=== PATIENT | male | born 1960 | race Asian ===

== ENCOUNTER 2025-04-09 04:49 | Emergency (ER) | payer MEDICARE, SELFPAY ==
[2025-04-09 04:58] VITALS: BP 116/74
--- NOTE | 2025-04-09 07:34 | ED.GENMED ---
History of Present Illness
General
Chief Complaint: Musculo-Skeletal Complaint
Time Seen by Provider: 04/09/25 07:33
History of Present Illness
History of Present Illness:
PAST MEDICAL HISTORY AND REVIEW OF OLD RECORDS
- The patient came in by ambulance. I reviewed the notes from EMS which indicates that the patient was brought here from .
Note:
CHIEF COMPLAINT(S)
Pain and discoloration in the foot.
HISTORY OF PRESENT ILLNESS
The patient is a 65-year-old male who presented with complaints of foot pain and discoloration. The details surrounding the onset and duration of symptoms were not provided, but the patient mentioned issues with the foot being persistent. He
described dropping something on the floor, which may have been related to the symptoms but no specific incident of trauma was clearly stated. He was picked up by emergency services from a . The patient has a previous history of living in
[place], [place], and is currently relocating to [facility]. He reported no current medications. He states that a local [place] is putting him up at a local hotel for the next couple of days.
PHYSICAL EXAM
General: Alert, no acute distress But appears somewhat disheveled
Skin: Warm, dry.
Head: Normocephalic, atraumatic.
Neck: Supple, trachea midline.
Eye, Ears, Nose, Mouth and Throat: Oral mucosa moist.
Cardiovascular: Normal peripheral perfusion, no edema.
Respiratory: Respirations are non-labored.
Musculoskeletal: There is no significant temperature difference between both feet, superficial varicosities noted, no evidence of infection, slight antalgic gait, although he reports diffuse left foot pain, he has no significant tenderness, perhaps
some very subtle diffuse left foot swelling compared to the right, I personally performed Doppler testing in which PT and DP pulses were easily heard bilaterally
Neurological: Alert and oriented to person, place, time, and situation, no focal neurological deficit observed.
DIFFERENTIAL DIAGNOSIS
The Differential Diagnosis includes, in no particular order and is not limited to:
1. Peripheral vascular disease
2. Gout
3. Diabetic neuropathy
4. Cellulitis
5. Deep vein thrombosis
6. Trauma-related injury
7. Peripheral neuropathy
8. Arthritis
9. Venous insufficiency
10. Dermatological causes
RADIOLOGY
- Left foot x-ray obtained, heel spurs noted. Ultrasound considered to evaluate for DVT, however I have very low suspicion of the patient did not want to have an ultrasound today
LABS
- No clear indication for labs
UPDATE
-SUMMARY OF ENCOUNTER
The 65-year-old male patient presented to the emergency department with complaints of foot pain and discoloration. After examination, he was found to have superficial varicosities, suggesting varicose veins as the cause of the discoloration. Good
blood flow was noted, with no signs of infection or acute major issues.
DISPOSITION
The patient was discharged with recommendations for follow-up care.
ASSESSMENT
The presence of varicose veins with associated discoloration and good peripheral blood flow was potentially causing the symptoms. No acute infections or major vascular issues were identified.
PLAN
Recommend consulting a specialist upon moving to [place] for further management of the varicose veins.
PATIENT EDUCATION AND COUNSELING
The patient was informed about the nature of varicose veins and their contribution to the discoloration in the foot. Advised on potential management strategies and the importance of monitoring the condition.
MEDICAL DECISION MAKING
-Complexity of Data Reviewed: Chronic conditions affecting care include differential diagnosis elements such as peripheral vascular disease, venous insufficiency, peripheral neuropathy, and others.
-Data:
Category 2
The examination revealed varicosities contributing to the discoloration, suggesting varicose veins.
-Risk:
Care significantly affected by Social Determinants of Health due to the patients recent relocation, which may hinder follow-up consistency and specialist consultation.
DIAGNOSIS
Varicose veins with associated discoloration - I83.90
SUMMARY OF ENCOUNTER
The 65-year-old male patient presented to the emergency department with complaints of foot pain and discoloration. After examination, he was found to have superficial varicosities, suggesting varicose veins as the cause of the discoloration. Good
blood flow was noted, with no signs of infection or acute major issues.
DISPOSITION
The patient was discharged with recommendations for follow-up care.
ASSESSMENT
The presence of varicose veins with associated discoloration and good peripheral blood flow was potentially causing the symptoms. No acute infections or major vascular issues were identified.
PLAN
Recommend consulting a specialist upon moving to [place] for further management of the varicose veins.
PATIENT EDUCATION AND COUNSELING
The patient was informed about the nature of varicose veins and their contribution to the discoloration in the foot. Advised on potential management strategies and the importance of monitoring the condition.
MEDICAL DECISION MAKING
-Complexity of Data Reviewed: Chronic conditions affecting care include differential diagnosis elements such as peripheral vascular disease, venous insufficiency, peripheral neuropathy, and others.
-Data:
Category 2
The examination revealed varicosities contributing to the discoloration, suggesting varicose veins.
-Risk:
Care significantly affected by Social Determinants of Health due to the patients recent relocation, which may hinder follow-up consistency and specialist consultation.
DIAGNOSIS
Varicose veins with associated discoloration - I83.90
Phy Exam
Physical Exam
Physical Exam:
See HPI
Course
Orders/Labs/Results
Orders:
Orders
04/09/25 05:34
Foot, Left 3 View [CR Foot - Left Min 3 Views] Urgent
Comment:
Reason For Exam: non traumatic pain
04/09/25 07:58
US Periph Venous LOWER Ext LT Urgent
Comment:
Reason For Exam: swelling
Vital Signs
Initial and Last Documented VS:
Initial Vital Signs
Temp Pulse Resp BP Pulse Ox
36.5 C 68 16 116/74 98
04/09/25 04:58 04/09/25 04:58 04/09/25 04:58 04/09/25 04:58 04/09/25 04:58
Last Documented Vital Signs
Temp Pulse Resp BP Pulse Ox
36.5 C 71 18 119/66 99
04/09/25 08:15 04/09/25 08:15 04/09/25 08:15 04/09/25 08:15 04/09/25 08:15
*Pulse Oximetry
SaO2: 98
Oxygen Mode of Delivery: Room air
Patient hypoxic: no
*Critical Care Note
Total Time (30-74mins, 75-104mins- exclusive of procedures): Not Applicable
ED Attending Note
-
Portions of this chart may have been created with voice recognition software.� Occasional wrong word or��sound alike� substitutions may have occurred due to the inherent limitations of voice recognition software.
Discharge Plan
Departure
Patient Disposition: Home (Routine Discharge)
Date of Disposition: 04/09/25
Time of Disposition: 08:33
Patient with high blood pressure during this ER visit?: Yes
Discharge Problem:
Acute foot pain
Activity Restrictions/Additional Instructions:
Return here if worse or other concerns. Follow-up with a primary care doctor.
Interventions
Interventions:
*Risk Screen - Suicide Last Done: 04/09/25 04:58
ED-Musculoskeletal Assessment Last Done: 04/09/25 08:15
Discharge Date and Time
Print Language: CHINESE
[2025-04-09 08:15] VITALS: BP 119/66
== END 2025-04-09 08:56 | disposition home or self-care (01) ==
LOC: EMR 04:49
PROVIDERS: EMERGENCY PHYSICIAN Emergency Medicine
DX: M79.672 Pain in left foot (principal); M77.32 Calcaneal spur, left foot
CPT/HCPCS: 99284; 73630